=== PATIENT | female | born 1970 | race Caucasian/White ===

== ENCOUNTER 2017-01-14 05:14 | Inpatient (IN) | payer MEDICARE, MEDICAID ==
[2017-01-10 11:16] LABS: BASOPHILS 0.4 % (0-2); EOSINOPHILS 1.7 % (0-7); HEMATOCRIT 42.9 % (36.0-48.0); HEMOGLOBIN 14.4 g/dL (12-16); IMMATURE GRANULOCYTES 0.1 % (0-5); LYMPHOCYTES 45.6 % (15-50); MCHC 33.6 g/dL (31.0-37.0); MCV 83.3 fL (80.0-100.0); MEAN PLATELET VOLUME 11.2 fL (7.4-10.4); MONOCYTES 6.6 % (2-11); NEUTROPHILS 45.6 % (40-80); PLATELET COUNT 267 10x3/uL (130-400); RBC 5.15 10x6/uL (4.00-5.40); RDW 14.7 % (11.5-14.5); WBC 8.1 10x3/uL (4.8-10.8)
[2017-01-10 11:36] LABS: ANION GAP 11.4 mmol/L (8-16); CALCIUM 8.6 mg/dL (8.5-10.1); CARBON DIOXIDE 30.2 mmol/L (21.0-32.0); CREATININE - SERUM 0.9 mg/dL (0.6-1.3); POTASSIUM - SERUM 3.6 mmol/L (3.5-5.1)
[~2017-01-14] VITALS: Ht 160 cm; Wt 77.1 kg
[~2017-01-14 05:14] MED LIST: ACETAMINOPHEN325 MG NG; AMBIEN10 MG PO; BAYER CHEWABLE81 MG PO; CELEBREX50 MG; CLEOCIN HCL300 MG PO; CYMBALTA60 MG PO; DILAUDID4 MG PO; ELIQUIS2.5 MG PO; HYDROCHLOROTH12.5 M1 PO; HYDROCODONE-APA1 TAB; IBUPROFEN600 MG PO; KLONOPIN0.5 MG; KLONOPIN1 MG PO; MIRAPEX1 MG PO; NO HOME MEDS; OXYCONTIN60 MG PO; PERCOCET 10/3251 TA1 PO; PHENERGAN25 M1 PO; PRILOSEC20 MG PO; REMERON15 MG PO; SILVADENE20 GM TP; ULTRAM50 MG PO; VANCOMYCIN 1 GM/1 G1 IV; WELLBUTRIN SR150 MG PO; ZOCOR20 MG PO; ZOFRAN4 MG PO; ZOLOFT50 MG PO
[2017-01-14 08:14] VITALS: BP 102/52; Ht 160 cm; Wt 77.1 kg
[2017-01-14] MEDS ORDERED: OXYCONTIN60 MG PO (10:39)
--- NOTE | 2017-01-14 11:55 | NUR ---
1115-RECD FROM PACU, DROWSY. IV PATENT. RESP WITH EASE. 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 1145-ALERT. FULL LIQUIDS SERVED. O2 D/C.
--- NOTE | 2017-01-18 21:23 | OP ---
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 PROCEDURE: Revision of painful scar and stump. SURGEON: Keenan Matos MD. ANESTHESIA: General. INTRAOPERATIVE COMPLICATIONS: None. SUMMARY OF PATHOLOGIC FINDINGS: The patient had very fibrotic hard tissue scarring of 2 areas that healed very slowly with lots of scar on her index operation. OPERATIVE SUMMARY IN DETAIL: After obtaining the appropriate preoperative orthopedic surgery consent as well as anesthetic consultation, evaluation and clearance, the patient was brought to the operating room and placed on the operating table in supine position. After general laryngeal mask airway was administered, tourniquet was placed about the proximal aspect of the right lower extremity. Right lower extremity and stump were prepped and draped in a routine sterile fashion. The leg was elevated and exsanguinated, tourniquet inflated to 350 mmHg. The medial scar was elliptically incised first followed by incision of fibrotic tissue undermining of the skin. Deep base was closed with #1 Vicryl and then approximately 50 cc of Neox powder was placed in the wound. This was then closed with 3-0 Prolene using mattress sutures. Having completed this, attention was turned to the lateral side where the less painful scar was approached. It too required elliptical incision, undermining of the skin edges as well as excision of scar tissue deep. This too was closed deeply with 0 Vicryl and was followed by placement of 50 mg of Neox powder and then the scar was closed again with 3-0 Prolene in mattress fashion. Sterile dressings were applied. Tourniquet was deflated. The patient was awakened, taken to recovery room in stable condition. All final needle and sponge counts were correct. 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
== END 2017-01-14 13:35 | disposition home or self-care (01) | DRG 499 ==
LOC: D.SDCHOLD 05:14
PROVIDERS: Anesthesiology; ADMIT Orthopaedic Surgery
PROC: 0QBB0ZZ Excision of Right Lower Femur, Open Approach (ICD-10-PCS; principal; 2017-01-14 09:00)
DX: T87.89 Other complications of amputation stump (principal)